=== PATIENT | male | born 1955 | race African-American/Black ===

== ENCOUNTER 2018-04-30 14:50 | Observation (INO) | payer MEDICARE, OTHER ==
[~2018-04-30 14:50] MED LIST: Gadobenate Dimeglumine 529 MG/1 ML (20ML VIAL) ONE
--- NOTE | 2018-04-30 19:00 | MRI ---
MRI OF THE THORACIC SPINE WITHOUT AND WITH CONTRAST: 04/30/18 COMPARISON: None. HISTORY: Fever and back pain. Evaluate for epidural abscess versus discitis. TECHNIQUE: Multiplanar and multisequence MRI images were obtained in the thoracic spine without and with IV cont rast. FINDINGS: The vertebral bodies and intervertebral discs demonstrate normal height and alignment without fractu re or subluxation. The visualized cord demonstrates normal signal throughout. The prevertebral and pa raspinal soft tissues are unremarkable. No abnormal enhancement is seen on this exam. There is no evidence of epidural abscess or discitis/os teomyelitis in the thoracic spine. No significant bulge or protrusion is seen throughout the thoracic spine. There is no central canal s tenosis. No neural foraminal stenosis is seen. IMPRESSION: Normal MRI of the thoracic spine. POS: [facility]
--- NOTE | 2018-04-30 19:12 | MRI ---
MRI OF THE LUMBAR SPINE WITHOUT AND WITH CONTRAST: 04/30/18 COMPARISON: None. HISTORY: Epidural abscess versus discitis/osteomyelitis. COMPARISON: Lumbar radiograph 04/30/18. TECHNIQUE: Multiplanar and multisequence MRI images were obtained in a lumbar spine without contrast. FINDINGS: Mild disc desiccation is seen in the lower lumbar intervertebral discs. The vertebral bodies and inte rvertebral discs demonstrate normal height and alignment without fracture or subluxation. The conus medullaris terminates normally at L1. The prevertebral and paraspinal soft tissues are unre markable. No abnormal enhancement is seen on this exam. There is no evidence of either an epidural abscess or d iscitis/osteomyelitis. L1-2: Unremarkable. L2-3: Unremarkable. L3-4: A small generalized concentric disc bulge is seen. No posterior facet arthrosis. Mild central c anal stenosis. Mild bilateral neural foraminal stenosis. L4-5: A small generalized concentric disc bulge is seen. No posterior facet arthrosis. Mild central c anal stenosis. Moderate left and mild right neural foraminal stenosis. L5-S1: Unremarkable. IMPRESSION: Degenerative changes of the lumbar spine without acute abnormality. POS: [facility]
--- NOTE | 2018-04-30 19:31 | MRI ---
MRI OF THE CERVICAL SPINE WITHOUT AND WITH CONTRAST 04/30/18 COMPARISON: None. HISTORY: Neck and back pain. Evaluate for epidural abscess and discitis. The patient also has fever. TECHNIQUE: Multiplanar and multisequence MR images were obtained of the cervical spine without and with IV contr ast. FINDINGS: Generalized disc desiccation is seen. The vertebral bodies and intervertebral discs demonstrate ankit l height and alignment without fracture or subluxation. End plate degenerative changes are seen surro unding the C6-7 intervertebral disc. No abnormal enhancement is seen to suggest discitis or osteomyel itis. No abnormal epidural fluid collection is seen. The prevertebral and paraspinal soft tissues are unremarkable. The craniocervical junction is unremarkable. The visualized cord demonstrates normal s ignal throughout. C2-3: Unremarkable. C3-4: Unremarkable. C4-5: A small generalized concentric disc bulge is seen. No posterior facet arthrosis. Mild central c anal stenosis. Mild bilateral neural foraminal stenosis. C5-6: A small disc osteophyte complex is seen. No posterior facet arthrosis. Moderate central canal s tenosis. Moderate bilateral neural foraminal stenosis. C6-7: A small generalized concentric disc bulge is seen. No posterior facet arthrosis. Moderate centr al canal stenosis. Moderate bilateral neural foraminal stenosis. C7-T1: A small generalized concentric disc bulge is seen. No posterior facet arthrosis. Mild central canal stenosis. Mild right neural foraminal stenosis. No left neural foraminal stenosis. IMPRESSION: Degenerative changes of the cervical spine without acute osseous abnormality. POS: [facility]
[2018-04-30] MEDS ORDERED: Ondansetron ODT 4 MG TAB SL PRN (22:04)
[2018-04-30] MEDS ORDERED: Acetaminophen 325 MG TAB PO PRN (22:04)
[2018-04-30] MEDS ORDERED: HYDROcodone/Acetaminophen 5/325 mg Tablet PO PRN ×2 (22:04)
[2018-04-30] MEDS ORDERED: Ondansetron HCl/PF 4 MG/2 ML Vial IVP PRN (22:04)
[2018-04-30 22:31] VITALS: BMI 19.3
--- NOTE | 2018-04-30 22:48 | PDOC.FPRHP ---
- History of Present Illness Chief Complaint: lower back pain History of Present Illness: 63yo M with PMH of DM and HTN presents as transfer from [place] [facility] for evaluation of back pain. Pt reports pain onset was 2 days ago acutely while sitting in chair. It is of sharp and constant character and rated 9/10. Exacerbated by movement. Pt presented to ED in [place] who transfered pt to [place] with concern of epidural abscess due to pt WBC of 16. Full spinal MRI showed no evidence of infection. But pt was found to be anemic at hgb 6.9. Pt reports that he has to take iron supplements and a multivitamin but that he ran out of them a long time ago. Also reports that he gets a blood transfusion every two years or so but does not know why. ED Course: Cervical/thoracic/lumbar MRI- negative for infection, CXR- negative, UA- unremarkable - Allergies/Adverse Reactions Allergies Allergy/AdvReac Type Severity Reaction Status Date / Time No Known Drug Allergies Allergy Verified 01/30/16 05:01 - Home Medications Medication Instructions Recorded Confirmed Type Iron 27 mg PO DAILY 01/30/16 04/30/18 History Vit D3/Folic Acid/B2/B6/B12 2,000 units PO DAILY 01/30/16 04/30/18 History [Folgard] Amlodipine Besylate [amLODIPine 5 mg PO DAILY #0 01/31/16 04/30/18 Rx Besylate] Glimepiride 2 mg PO QAM-WM #0 01/31/16 04/30/18 Rx Omeprazole 20 mg PO DAILY 01/31/16 04/30/18 History Acetaminophen With Codeine 1 tablet PO Q6HR PRN #18 tablet 05/01/18 Rx [Tylenol with Codeine #3] - History PMHx: DM, HTN PSHx: negative FHx: CAD, DM Social: 3-4 cigarettes per day, 5 pack years. Denies EtOH/drugs - Review of Systems General: denies: fever/chills ENT: denies: nasal congestion Respiratory: denies: cough, congestion Cardiovascular: denies: chest pain, palpitation Gastrointestinal: denies: nausea, vomiting, GI bleeding Genitourinary: reports: other (no hematuria) Skin: denies: rashes, lesions Musculoskeletal: reports: pain, stiffness - Vital signs BP: [147/83] HR: [71] RR: [15] Tmax: [99.2] Pox: [98]% on [ra] Wt: [52kg] - Physical Exam Constitutional: NAD, awake, alert and oriented HEENT: normocephalic and atraumatic, EOMI, normal nasal mucosa, MMM Chest: no-tender to palpation Heart: RRR, normal S1/S2 Lungs: CTAB, no respiratory distress, good air movement Abdomen: soft, non-tender, bowel sounds present Musculoskeletal: other (L flank tenderness to percussion) Neurological: normal sensation Skin: no rash/lesions, good turgor Heme/Lymphatic: no purpura, no petechia Psychiatric: normal mood and affect FMR H&P: Results - Labs Result Diagrams: 05/01/18 05:31 05/01/18 08:02 FMR H&P: A/P - Problem List (1) Acute anemia Status: Acute Code(s): D64.9 - ANEMIA, UNSPECIFIED (2) Back pain Status: Acute Code(s): M54.9 - DORSALGIA, UNSPECIFIED (3) Diabetes mellitus Status: Chronic Code(s): E11.9 - TYPE 2 DIABETES MELLITUS WITHOUT COMPLICATIONS (4) HTN (hypertension) Status: Chronic Code(s): I10 - ESSENTIAL (PRIMARY) HYPERTENSION - Plan Acute on Chronic Anemia A- Hgb 6.9 down from 10.4 in November 2017, pt asymptomatic and denying any forms of blood loss. Recent colonoscopy, report not available, but path available showing removal of tubular adenoma. MCV 66 suggestive of iron deficiency, pt on iron supplements as home med. s/p 1u PRBC P- f/u FOBT -will check iron studies -home Iron supplementation. -GTT -CBC in AM Acute low back pain -spine MRI negative, Infectious etiology ruled out. UA negative Likely musculoskeletal. Leukocytosis A- UA negative and Pt is afebrile. P- monitor for s/s of infection Hypertension A- BP stable P- home meds Diabetes Mellitus. -home meds -[facility]HS accuchecks. FMR H&P: Upper Level - Pertinent history Cliff Miller is a 63 year old male who presented to the ED with a 2-3 day history of low back pain and right flank pain that began suddenly at rest. He denies any acute trauma of heavy lifting. No neurological symptoms. Denies urinary retention. Pt was transferred from an outside ER due to concern for discitis/osteomyeltis with back pain and elevated WBC and elevated CRP. He was also found to have a hemoglobin of 6.9 He denies fatigue, hematemesis, hematochezia, and melena. Pt has a history of anemia requiring transfusion in 2011 for a hemoglobin of 4.8. He had and EGD which showed erosive gastritis, and it was thought that this was related to NSAID use. Colonoscopy done at that time was normal. He had another colonosocpy in December 2017 in which a tubular adenoma was removed. - Pertinent findings Vitals: T: 98.2 BP: 147/65 P: 87 RR: 16 SpO2: 98% on RA General: Alert and oriented. In no distress; cachectic appearing Heart: RRR, no MRG Lungs: CTAB Back: midline tenderness near L4/5 with right paraspinal tenderness in this region. Skin: no rashes or lesions Hgb: 6.9 MCV: 63 RDW 17 Cervical MRI - no acute process Thoracic MRI - no acute process Lumbar MRI - degenerative changes; no acute process - Plan Date/Time: 04/30/18 0922 I, Shanti Solis, have evaluated this patient and agree with findings/plan as outlined by it intern resident. Pertinent changes/additions are listed here. Acute on Chronic Anemia - down from 10.4 in November 2017 - pt does not appear to be symptomatic from anemia at this time. No signs or symptoms of blood loss. FOBT pending. - Pt has been worked up for anemia in the past. Recent colonoscopy, report not available, but path available showing removal of tubular adenoma. - Labs consistent with iron deficiency anemia. will check iron studies. will rule out celiac disease. Iron supplementation. - pt to be transfused 1 unit PRBC. Repeat CBC in AM Acute low back pain - Infectious etiology ruled out. Leukocytosis - UA unremarkable. - Pt afebrile. - will continue to monitor for infectious symptoms. Hypertension - BP stable - resume home meds Diabetes Mellitus. - will resume home meds - ACHS accuchecks. Attending Addendum - Attending Addendum Date/Time: 05/01/18 7733 I personally evaluated the patient and discussed the management with Dr. Malone and Dr. Solis I agree with the History, Examination, Assessment and Plan documented above with any addition or exceptions noted below. 63 yo male with multiple medical problems admitted for severe anemia. Patient with continued history of iron deficiency anemia. Patient reports past workup and recent colonoscopy. Has received transfusion frequently. Will transfuse 1 unit. Currently stable and asymptomatic. Will request records. Consider ruling out malabsorptive complications vs hemaglobinopathy. MRI reviewed. Valerio
[2018-04-30] MEDS ORDERED: Ondansetron ODT 4 MG TAB PO PRN (23:01)
[2018-04-30] MEDS ORDERED: Acetaminophen/Codeine 30-300mg Tablet PO PRN ×2 (23:01)
[2018-05-01 05:58] LABS: Iron 17 ug/dL (65-175); Iron Binding Capacity, Total 378 mcg/dL (261-462)
[2018-05-01] MEDS ORDERED: Nicotine 14 MG PATCH TD SCH (06:00)
--- NOTE | 2018-05-01 06:06 | PDOC.FM ---
- Subjective Subjective: Patient states back pain is a 0/10 this morning after pain medications. No other complaints. - Objective Vital Signs & Weight: Vital Signs (12 hours) Temp Pulse Pulse Resp BP BP Pulse Ox 05/01/18 04:02 99.3 F 67 18 151/72 H 94 L 05/01/18 01:28 99.1 F 75 16 157/73 H 05/01/18 00:13 98.4 F 72 25 H 164/69 H 95 04/30/18 23:15 99.4 F 72 16 148/70 H 04/30/18 22:56 97.9 F 77 16 137/67 04/30/18 22:01 100.1 F H 75 12 147/69 H 95 Weight Weight 52.662 kg I&O: 04/29/18 04/30/18 05/01/18 06:59 06:59 06:59 Intake Total 700 Balance 700 Result Diagrams: 05/01/18 05:31 05/01/18 08:02 <Trish Parmar - Last Filed: 05/01/18 09:18> - Objective Vital Signs & Weight: Vital Signs (12 hours) Temp Pulse Pulse Resp BP BP Pulse Ox 05/01/18 08:24 70 05/01/18 08:23 99.2 F 70 18 132/65 94 L 05/01/18 04:02 99.3 F 67 18 151/72 H 94 L 05/01/18 01:28 99.1 F 75 16 157/73 H 05/01/18 00:13 98.4 F 72 25 H 164/69 H 95 Weight Weight 53.07 kg I&O: 04/30/18 05/01/18 05/02/18 06:59 06:59 06:59 Intake Total 1800 Output Total 275 Balance 1525 Result Diagrams: 05/01/18 05:31 05/01/18 08:02 <Ross Boss - Last Filed: 05/01/18 11:52> Phys Exam - Physical Examination Constitutional: NAD HEENT: PERRLA, moist MMs Neck: no nodes, supple Respiratory: no wheezing, no rales, no rhonchi, clear to auscultation bilateral Cardiovascular: RRR, no significant murmur Gastrointestinal: soft, non-tender, positive bowel sounds Musculoskeletal: no edema, pulses present Neurological: moves all 4 limbs Psychiatric: normal affect, A&O x 3 <GhulamTrish - Last Filed: 05/01/18 09:18> Dx/Plan (1) Acute anemia Code(s): D64.9 - ANEMIA, UNSPECIFIED Status: Acute (2) Back pain Code(s): M54.9 - DORSALGIA, UNSPECIFIED Status: Acute (3) Diabetes mellitus Code(s): E11.9 - TYPE 2 DIABETES MELLITUS WITHOUT COMPLICATIONS Status: Chronic (4) HTN (hypertension) Code(s): I10 - ESSENTIAL (PRIMARY) HYPERTENSION Status: Chronic (5) Leukocytosis Code(s): D72.829 - ELEVATED WHITE BLOOD CELL COUNT, UNSPECIFIED Status: Acute - Plan Plan: 63 yo M with acute on chronic anemia Acute on Chronic Anemia - Hgb was 6.9, down from 10.4 in November 2017. Pt reports getting blood transfusions about every 2 years. Hx of Hgb 4.6 in 2011. - pt asymptomatic, No signs or symptoms of blood loss at this time. - s/p 1 unit PRBC - FOBT pending - Pt has been worked up for anemia in the past. Recent colonoscopy, report not available, but path available showing removal of tubular adenoma. - Labs consistent with iron deficiency anemia. - GTT pending to rule out celiac disease - Iron supplementation - Repeat hgb improved appropriately to 7.6 Acute low back pain - Spine MRI negative, Infectious etiology ruled out. UA negative. Likely musculoskeletal. Leukocytosis - UA unremarkable. WBC improved from 16 to 13.4 - Pt afebrile. - will continue to monitor for infectious symptoms. Hypertension - resume home meds Diabetes Mellitus. - will resume home meds - ACHS accuchecks. <GhulamTrish - Last Filed: 05/01/18 09:18> Attending Addendum - Attending Addendum Date/Time: 05/01/18 [id number] I personally evaluated the patient and discussed the management with Dr. Parmar. I agree with the History, Examination, Assessment and Plan documented above with any addition or exceptions noted below. Patient here with back pain and incidental finding of acute anemia. He reports having to have transfusions in the past, and he has a documented history of erosive gastritis. Blood counts improved s/p 1 unit PRBCs, but his iron levels are significantly low. We will arrange for iron infusion today. FOBT pending and will consult GI if this appears to be source of blood loss. He denies any active bleeding but reports that he does not "pay attention to BMs". His back pain is overall resolved, but he does have point tenderness in the lower back, both midline and paraspinal. His MRI were normal. Will obtain XR of the sacrum and SI joints. His ESR is highly elevated, but no source identified at this time and it does not appear to be related to osteomyelitis of the spine or diskitis. Will discuss his labs with his PCP to see if this is a chronic elevation or new issue. <Ross Boss - Last Filed: 05/01/18 11:52>
[2018-05-01 07:36] LABS: Band 5 % (5-11); Eosinophils 3 % (0-10); Hemoglobin 7.6 g/dL (14.0-18.0); Hypochromia MODERATE=16-30 cells (100X) (0-5/hpf); Lymphocytes 13 % (21-51); MDiff Complete? YES; Mean Corpuscular HGB CONC 29.7 g/dL (32.0-36.0); Mean Corpuscular Hemoglobin 19.7 pg (27.0-31.0); Mean Corpuscular Volume 66.4 fL (78.0-98.0); Mean Platelet Volume 11.1 fL (7.4-10.4); Microcytosis MODERATE=15-30 cells (100X) (0-5/hpf); Monocytes 9 % (0-10); Neutrophil 70 % (42-75); Ovalocytes SLIGHT = 2-5 cells (100X) (0-1/hpf); PLT Morphology Comment Appears Increased; Platelet Count 447 thou/uL (130-400); Polychromasia SLIGHT = 2-3 cells (100X) (0-2/hpf); Red Blood Cell (RBC) Count 3.85 mill/uL (4.70-6.10); White Blood Cell (WBC) Count 13.4 thou/uL (4.8-10.8)
[2018-05-01] MEDS ORDERED: Glimepiride 2 MG TAB PO SCH (08:00)
[2018-05-01 08:38] LABS: ALT (SGPT) Less than 7 U/L (8-55); AST (SGOT) 11 U/L (5-34); Albumin 3.9 g/dL (3.4-4.8); Alkaline Phosphatase 91 U/L (40-150); Anion Gap 12 mmol/L (10-20); BUN (Urea Nitrogen) 8 mg/dL (8.4-25.7); Bilirubin, Total 0.5 mg/dL (0.2-1.2); Calc. Creatinine Clearance 72 mL/min (70-130); Calcium 9.2 mg/dL (7.8-10.44); Carbon Dioxide 20 mmol/L (23-31); Chloride 103 mmol/L (98-107); Estimated GFR-MDRD Greater than 90; Globulin 3.8 g/dL (2.4-3.5); Glucose 98 mg/dL (80-115); Potassium 3.4 mmol/L (3.5-5.1); Protein, Total 7.7 g/dL (5.8-8.1); Sodium 132 mmol/L (136-145)
[2018-05-01] MEDS ORDERED: Folic Acid/Vit B Comp W-C PO SCH (09:00)
[2018-05-01] MEDS ORDERED: Enoxaparin Sodium 40 MG/0.4 ML SYRINGE SC SCH (09:00)
[2018-05-01] MEDS ORDERED: Ferrous Gluconate 324 MG TAB PO SCH (09:00)
[2018-05-01] MEDS ORDERED: Famotidine 20 MG TAB PO SCH (09:00)
[2018-05-01] MEDS ORDERED: Amlodipine 5 MG TAB PO SCH (09:00)
[2018-05-01] MEDS ORDERED: Iron Sucrose Complex 200 MG in Sodium Chloride 0.9% 250 ML 250 ML IVPB SCH (12:00)
[2018-05-01] MEDS ORDERED: Sodium Ferric Gluconate 250 MG in Sodium Chloride 0.9% 100 ML IVPB SCH (12:45)
[2018-05-01 13:21] LABS: Syphilis Antibody Nonreactive (Nonreactive); Syphilis Antibody Index 0.05 S/CO (<1.00 Non-Reactive)
[2018-05-01 13:36] LABS: Hep B Core Total Ab Non-Reactive (NonReactive)
[2018-05-01 13:37] LABS: Hep B Surf Ag Non-Reactive S/CO (NonReactive)
[2018-05-01 13:39] LABS: Hep B Surf AB Non-Reactive (NonReactive)
[2018-05-01 13:45] LABS: Hep C IgG Ab Non-Reactive (NonReactive)
--- NOTE | 2018-05-01 14:14 | RAD ---
THREE VIEWS OF THE SACRUM/COCCYX: COMPARISON: None. HISTORY: Low back pain. FINDINGS: Three views of the sacrum/coccyx show no evidence of displaced sacral or coccygeal fracture. The sac ral alae are symmetric. The sacral alae joints are unremarkable. IMPRESSION: No evidence of displaced sacral or coccygeal fracture. POS: [facility]
[2018-05-01 16:02] LABS: Hep B Core Total Index 0.11 S/CO (0-0.79)
[2018-05-01 16:03] LABS: HBSAB Concentration 1.27 mIU/mL; HBSAg Index 0.18 S/CO (0-0.99); HIV (1/2) Antibody/Antigen Non-Reactive (NonReactive); HIV 1/2 INDEX 0.08 S/CO (<1.00)
[2018-05-01 16:09] LABS: EliA Celiac New Method **** NEW METHOD ****; t-Transglutaminase (tTG) IgA 0.5 EliAU/mL (<7 Negative); t-Transglutaminase (tTG) IgG Less than 0.6 EliAU/mL (<7 Negative)
[2018-05-01 16:51] VITALS: BP 163/79; TEMP 99
--- NOTE | 2018-05-01 17:10 | PDOC.EVN ---
Event Note - Event Note Event Note: Patient admitted here with back pain and incidental finding of microcytic anemia. He had highly elevated ESR and CRP in outside ER and was transferred here due to concern for osteomyelitis/epidural abscess/diskitis. He had MRI of the spine which did not show any abnormalities. His back pain is mostly MSK in origin, and mostly located in the paraspinal muscles and flank. He had 1 unit of PRBCs given due to his anemia, and received iron infusion for his chronic iron deficiency. He reports that he has seen GI in the past and they have worked up his cause for anemia in the past with no result. He endorses that he has had to have transfusions every once in awhile for the last several years. Patient currently feels well. We have done our diligence in locating a cause of his elevated ESR, but we have been unable to do so. It does not appear to be related to malignancy or infection, and he has no history of auto-immune disorder. We have spoken with the patient's PCP, Dr. Chester, who is agreeable to discharge of the patient with close outpatient follow up. Patient also with this anemia that does not seem related to an acute blood loss anemia as he is otherwise hemodynamically stable, has no evidence of active GI bleed. His PCP is also agreeable to further workup in outpatient setting for his anemia. Patient feels well and agreeable to discharge today. Return precautions given.
[2018-05-01] MEDS ORDERED: guaiFENesin ER 600 MG TAB PO SCH (21:00)
--- NOTE | 2018-05-02 22:08 | DIS-2 ---
DATE OF ADMISSION: 04/30/2018 DATE OF DISCHARGE: 05/01/2018 RESIDENT: Trish Parmar M.D. ADMITTING ATTENDING: Cass Anthony M.D. DISCHARGE ATTENDING: Ross Boss M.D. CONSULTATIONS: None. PROCEDURES: 1. On 04/30/2018, cervical spine MRI. Findings, general disk desiccation is seen. The vertebral bodies and intervertebral disk demonstrate normal height and alignment without fracture or subluxation. Endplate degenerative changes are seen surrounding the C6-C7 intervertebral disk. No abnormal enhancement is seen to suggest diskitis or osteomyelitis. No abnormal epidural fluid collection is seen. The prevertebral and paraspinal soft tissues are unremarkable. The craniocervical junction is unremarkable. The visualized cord demonstrates normal signal throughout. C2-C3, unremarkable. C3-C4, unremarkable. C4-C5, a small generalized concentric disk bulge is seen. No posterior facet arthrosis. Mild central canal stenosis. Mild bilateral neural stenosis. C5-C6, a small disk osteophyte complexes seen. No posterior facet arthrosis. Moderate central canal stenosis. Moderate bilateral neural foraminal stenosis. C6-C7, small generalized concentric disk bulge is seen. No posterior facet arthrosis. Moderate central canal stenosis. Moderate bilateral neural foraminal stenosis. C7-T1, a small generalized concentric disk bulge is seen. No posterior facet arthrosis. Mild central canal stenosis. Mild right neural foraminal stenosis. No left neural foraminal stenosis. Impression: Degenerative changes of the cervical spine without acute osseous abnormality. 2. On 04/30/2018, lumbar spine MRI. Findings: Mild disk desiccation is seen in the lower lumbar intervertebral disk. This vertebral bodies and intervertebral disks demonstrate normal height and alignment without fracture or subluxation. The conus medullaris terminates normally at L1. The prevertebral and paraspinal soft tissues are unremarkable. L1-L2, unremarkable. L2-L3, unremarkable. L3-L4, a small generalized concentric disk bulge is seen. Mild central canal stenosis. Mild bilateral neural foraminal stenosis. L4-L5, a small generalized concentric disk bulge is seen. Mild central canal stenosis. Moderate left and mild right neural foraminal stenosis. L5-S1, unremarkable. Impression: Degenerative changes of the lumbar spine without acute abnormality. 3. On 04/30/2018, thoracic spine MRI, the vertebral bodies and intervertebral disks demonstrate normal height and alignment without fracture or subluxation. Visualized cord demonstrates normal signal throughout. The prevertebral and paraspinal soft tissues are unremarkable. Impression: Normal MRI of thoracic spine. 4. On 05/01/2018, sacrum and coccyx x-ray. Impression: No evidence of displaced sacral or coccygeal fracture. PRIMARY DIAGNOSIS: Acute on chronic anemia. SECONDARY DIAGNOSES: 1. Acute low back pain. 2. Leukocytosis. 3. Hypertension. 4. Type 2 diabetes mellitus. 5. Elevated ESR. DISCHARGE MEDICATIONS: 1. Acetaminophen with codeine 1 tablet p.o. q.6 hours p.r.n. 2. Vitamin D3/folic acid/B2/B6/B12 of 2000 units p.o. daily. 3. Iron 27 mg oral daily. 4. Amlodipine 5 mg p.o. daily. 5. Glimepiride 2 mg p.o. every morning with breakfast. DISCONTINUED MEDICATIONS: None. HISTORY OF HISTORY OF PRESENT ILLNESS AND HOSPITAL COURSE: A 63-year-old male with past medical history of diabetes and hypertension, who presented transferred from [place] ER for evaluation of back pain. The patient reports pain was started 2 days ago acutely while sitting in the chair. It was sharp and constant and rated 9/10. The pain is exacerbated by movement. The patient presented to the ED in [place] to transfer the patient to [place] concern for epidural abscess due to the patient's white blood count of 16. Full spinal MRI showed no evidence of infection. The patient was found to be anemic at hemoglobin 6.9. The patient reports that he has to take iron supplement and a multivitamin, but that he ran out of them a long time ago. He also reported that he gets blood transfusion every 2 years or so, but does not know why. In the ED, the cervical, thoracic, lumbar MRI were negative for infection. Chest x -ray was negative. UA was unremarkable. For his acute on chronic anemia, his hemoglobin was down to 6.9 from 10.4 in 2017. The patient was asymptomatic and denying any forms of blood loss. He had a recent colonoscopy which had path available showing removal of a tubular adenoma. His labs were consistent with iron deficiency anemia. GTT was taken to rule out celiac disease. An JOE was also ordered, recommendation of the patient's PCP. The patient was started on iron supplementation. His repeat hemoglobin improved appropriately to 7.6 after 1 unit of PRBCs. For his acute low back pain, infectious etiology was ruled out with a spine MRI. His UA was negative. His back pain was likely musculoskeletal. For his leukocytosis, his UA was unremarkable. His white blood cells improved from 16-13.4. The patient was afebrile. His ESR was found to be elevated at 118. His PTT was negative. PT IgG was less than 0.6 and PT IgA was 0.5, which is a celiac interpretation of negative. Syphilis was negative. Hepatitis B antibody and antigen were nonreactive. Hepatitis B core total antibody was nonreactive. Hepatitis B surface antibody index was 1.27, which puts them in the indeterminate range. The immune status of individual should be further assessed by follow up testing. His HIV was nonreactive and hepatitis C antibody was nonreactive. For his hypertension, his home medications were resumed. For his diabetes mellitus type 2, his home medications were resumed. . We discussed the patient's presentation and history with his PCP. Although, a source for the patient's anemia was not found while he was inpatient, the patient had stable vital signs. The patient was decided to be stable for discharge with close follow up by PCP and further workup for his anemia and elevated ESR. DISPOSITION: Stable. DISCHARGE INSTRUCTIONS: 1. Location: Home. 2. Diet: Heart healthy, consistent carbohydrate. 3. Activity: As tolerated. 4. Followup: Follow up with PCP, Dr. Rangel within the next 3 days. [facility]
[2018-05-04 12:56] LABS: ANA Symphony (Qualitative) Negative (Negative); dsDNA IgG Antibody Less than 0.5 IU/mL (<10 Negative)
== END 2018-05-01 17:46 | disposition home or self-care (01) ==
LOC: ERS 14:50 → 2NO 20:27
PROVIDERS: ADMIT Student in an Organized Health Care Education/Training Program; ATTEND Student in an Organized Health Care Education/Training Program
DX: D50.9 Iron deficiency anemia, unspecified (principal); M54.5 Low back pain; E11.9 Type 2 diabetes mellitus without complications; I10 Essential (primary) hypertension; F17.210 Nicotine dependence, cigarettes, uncomplicated; M48.02 Spinal stenosis, cervical region; M48.061 Spinal stenosis, lumbar region without neurogenic claudication; D72.829 Elevated white blood cell count, unspecified; Z79.84 Long term (current) use of oral hypoglycemic drugs; Z79.899 Other long term (current) drug therapy
CPT/HCPCS: 36415; 36416; 36430; 72156; 72157; 72158; 72220; 80053; 82728; 83516; 83540; 83550; 85060; 86038; 86225; 86704; 86706; 86780; 86803; 86850; 86900; 86901; 87340; 87389; 96365; 96366; 96374; 96375; A9579; G0378; J2270; J2916; J7050; P9016

== ENCOUNTER 2018-05-24 15:08 | Observation (INO) | payer MEDICARE, MEDICAID ==
[2018-05-24 16:58] LABS: CKMB 0.6 ng/mL (0-6.6)
[2018-05-24 17:14] LABS: Troponin I 0.017 ng/mL (< 0.028)
[2018-05-24] MEDS ORDERED: Ondansetron ODT 4 MG TAB SL PRN (18:06)
[2018-05-24] MEDS ORDERED: Acetaminophen 325 MG TAB PO PRN (18:06)
[2018-05-24] MEDS ORDERED: Ondansetron HCl/PF 4 MG/2 ML Vial IVP PRN (18:06)
[2018-05-24 18:46] VITALS: BMI 20.1
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
[2018-05-24] MEDS ORDERED: Guaifenesin DM 100-10/5 ML UDCUP PO PRN (19:24)
[2018-05-24 19:36] LABS: Troponin I 0.019 ng/mL (< 0.028)
[2018-05-24] MEDS ORDERED: Dextrose 50% Abboject 50 ML SYRINGE SLOW IVP PRN (19:40)
[2018-05-24] MEDS ORDERED: Insulin Regular 300 UNITS/3 ML VIAL SC PRN (19:40)
[2018-05-24] MEDS ORDERED: Dextrose 5% in Water 1,000 ML IV PRN (19:40)
[2018-05-24] MEDS ORDERED: Nicotine 14 MG PATCH TD SCH (20:00)
[2018-05-24] MEDS: Famotidine 20 MG TAB PO SCH (20:42)
[2018-05-24 22:44] LABS: Troponin I Less than 0.010 ng/mL (< 0.028)
[2018-05-25 05:02] LABS: #Lymphocytes 0.4 thou/uL (1.20-3.40); #Monocytes 0.2 thou/uL (0.11-0.59); #Neutrophils 5.4 thou/uL (1.40-6.50); %Lymphocytes 7.3 % (21.0-51.0); %Monocytes 3.8 % (0.0-10.0); %Neutrophils 88.9 % (42.0-75.0); Anisocytosis SLIGHT = 6-15 cells (100X) (0-5/hpf); Hemoglobin 9.8 g/dL (14.0-18.0); Hypochromia SLIGHT = 6-15 cells (100X) (0-5/hpf); MDiff Complete? YES; Mean Corpuscular Hemoglobin 24.2 pg (27.0-31.0); Mean Corpuscular Volume 80.7 fL (78.0-98.0); Mean Platelet Volume 11.6 fL (7.4-10.4); Ovalocytes SLIGHT = 2-5 cells (100X) (0-1/hpf); PLT Morphology Comment Appears Adequate; Platelet Count 362 thou/uL (130-400); Polychromasia SLIGHT = 2-3 cells (100X) (0-2/hpf); Red Blood Cell (RBC) Count 4.06 mill/uL (4.70-6.10); White Blood Cell (WBC) Count 6.1 thou/uL (4.8-10.8)
--- NOTE | 2018-05-25 05:29 | PDOC.FM ---
- Subjective Subjective: Mr. Miller is resting comfortably in bed without any complaints, he denies chest pain, SOB, fever/chills. He would like to go home today. - Objective Vital Signs & Weight: Vital Signs (12 hours) Temp Pulse Resp BP BP Pulse Ox 05/25/18 04:00 99.1 F 84 20 116/61 98 05/24/18 20:52 98.9 F 05/24/18 19:24 99 05/24/18 19:12 81 16 99 05/24/18 17:55 70 16 128/65 97 Weight Weight 56.518 kg Result Diagrams: 05/25/18 03:52 <Hernan Ballard - Last Filed: 05/25/18 09:04> - Objective Vital Signs & Weight: Vital Signs (12 hours) Temp Pulse Resp BP BP Pulse Ox 05/25/18 10:58 98.4 F 76 20 139/70 99 05/25/18 08:46 80 140/71 05/25/18 07:16 97.7 F 80 16 140/71 100 05/25/18 04:00 99.1 F 84 20 116/61 98 Weight Weight 56.518 kg I&O: 05/24/18 05/25/18 05/26/18 06:59 06:59 06:59 Intake Total 450 Balance 450 Result Diagrams: 05/25/18 03:52 <Ita Crews - Last Filed: 05/25/18 14:39> Phys Exam - Physical Examination Constitutional: NAD HEENT: moist MMs Respiratory: no wheezing, no rales, no rhonchi, clear to auscultation bilateral Cardiovascular: RRR, no significant murmur, no rub Gastrointestinal: non-tender, no distention Musculoskeletal: no edema, pulses present Neurological: non-focal, normal sensation, moves all 4 limbs Psychiatric: normal affect Skin: no rash <Hernan Ballard - Last Filed: 05/25/18 09:04> Dx/Plan (1) COPD exacerbation Code(s): J44.1 - CHRONIC OBSTRUCTIVE PULMONARY DISEASE W (ACUTE) EXACERBATION Status: Acute (2) Elevated troponin Code(s): R74.8 - ABNORMAL LEVELS OF OTHER SERUM ENZYMES Status: Acute (3) Diabetes mellitus Code(s): E11.9 - TYPE 2 DIABETES MELLITUS WITHOUT COMPLICATIONS Status: Chronic (4) HTN (hypertension) Code(s): I10 - ESSENTIAL (PRIMARY) HYPERTENSION Status: Chronic (5) Anemia Code(s): D64.9 - ANEMIA, UNSPECIFIED Status: Acute - Plan Plan: COPD exacerbation, mild -s/p 1 dose rocephin -discharge on azithromycin -Wean duonebs, oxygen challenge today -needs outpatient PFTs -cont prednisone x 5 days mildy elevated trop -neg. x3 -no chest pain present -needs to have f/u in outpatient setting with PCP DM II -DC on home meds -q ACHS accuchecks -SSI HTN - well controlled this morning -cont home meds Anemia - Chronic issue unknown origin - being managed outpatient - improved from recent hospitalizations Dispo: DC today on azithromycin and steroids to complete 5 day course <Hernan Ballard - Last Filed: 05/25/18 09:04> Attending Addendum - Attending Addendum Date/Time: 05/25/18 [id number] I personally evaluated the patient and discussed the management with Dr. Ballard I agree with the History, Examination, Assessment and Plan documented above with any addition or exceptions noted below- Patient without complaints. States that breathing is back to baseline. Able to ambulate without any SOB. Afebrile VSS. A/p: 1) Presumed COPD with exacerbation- breathing back to baseline. Plan to d/c home with inhalers and to finish a course of po antibiotics, steroids. 2 ) Anemia- chronic- undergoing outpatient evaluation. 3) DM with hyperglycemia- possibly elevated glucose due to steroids; plan to re-evaluate as outpatient. <Ita Crews - Last Filed: 05/25/18 14:39>
[2018-05-25] MEDS ORDERED: Ferrous Sulfate 325 MG TAB PO SCH (08:00)
[2018-05-25] MEDS ORDERED: Glimepiride 4 MG TAB PO SCH (08:00)
[2018-05-25] MEDS: Famotidine 20 MG TAB PO SCH (08:47)
[2018-05-25] MEDS ORDERED: Enoxaparin Sodium 40 MG/0.4 ML SYRINGE SC SCH (09:00)
[2018-05-25] MEDS ORDERED: B12 PO SCH (09:00)
[2018-05-25] MEDS ORDERED: VIT D3 PO SCH (09:00)
[2018-05-25] MEDS ORDERED: B2 PO SCH (09:00)
[2018-05-25] MEDS ORDERED: Azithromycin 250 MG TAB PO SCH (09:00)
[2018-05-25] MEDS ORDERED: B6 PO SCH (09:00)
[2018-05-25] MEDS ORDERED: FOLIC ACID PO SCH (09:00)
[2018-05-25] MEDS ORDERED: Amlodipine 10 MG TAB PO SCH (09:00)
[2018-05-25 11:52] VITALS: BP 139/70; TEMP 98.4
[2018-05-25] MEDS ORDERED: predniSONE 20 MG TAB PO SCH (20:00)
--- NOTE | 2018-05-25 23:59 | DIS-2 ---
DATE OF ADMISSION: 05/24/2018 DATE OF DISCHARGE: 05/25/2018 RESIDENT: Hernan Ballard DO ADMITTING ATTENDING: Dr. Reji Yu. DISCHARGE ATTENDING: Dr. Ita Crews. CONSULTATIONS: None. PROCEDURES: None. PRIMARY DIAGNOSIS: Chronic obstructive pulmonary disease exacerbation. SECONDARY DIAGNOSES: 1. Elevated troponin. 2. Diabetes mellitus type 2. 3. Hypertension. 4. Tobacco abuse. DISCHARGE MEDICATIONS: Folgard one tablet 2000 units p.o. daily Iron 18 mg tablet p.o. daily Amlodipine 5 mg p.o. daily Glimepiride 2 mg p.o. b.i.d. Azithromycin 250 mg p.o. daily Prednisone 40 mg p.o. daily for 5 days. DISCONTINUED MEDICATIONS: None. HISTORY OF PRESENT ILLNESS AND HOSPITAL COURSE: This is a 63-year-old male with a past medical history of hypertension, diabetes mellitus type 2, that presented to the [place] [facility] with a 1-day history of shortness of breath and wheezing. This came on rapidly Friday night. The symptoms began mild but persisted through the evening and on the day on Friday. His shortness of breath was not exacerbated or relieved by anything. He reports no fever or chills. He does have a cough. There was a fever of 102 in the [place] ER, he was given Rocephin and Solu-Medrol 125, Tylenol and DuoNebs before transfer. Upon arriving into our ED, he was no longer symptomatic. Negative review of systems and in general felt well, tolerated his hospital stay well. No changes in status, received DuoNebs and was begun steroids and antibiotics upon discharge. DISCHARGE INSTRUCTIONS: The patient is discharged home stable with no restrictions. 1. Discharge location: Home. 2. Diet: Diabetic diet. 3. Activity: As tolerated. 4. Follow up with Dr. Rangel on his appointment on 05/27. [facility]
== END 2018-05-25 13:41 | disposition home or self-care (01) ==
LOC: ERS 15:08 → 2SW 18:13
PROVIDERS: ADMIT Family Medicine; ATTEND Family Medicine
DX: J44.1 Chronic obstructive pulmonary disease with (acute) exacerbation (principal); E11.9 Type 2 diabetes mellitus without complications; I10 Essential (primary) hypertension; D64.9 Anemia, unspecified; Z79.84 Long term (current) use of oral hypoglycemic drugs; Z79.899 Other long term (current) drug therapy
CPT/HCPCS: 82553; 82962 ×2; 84484; 85025; 90686; 93005; 94640; 96372; 99285; G0008; G0378; 36415; 36416; 90471; J1650; J1815